=== PATIENT | female | born 1995 | race Caucasian/White ===

== ENCOUNTER 2016-11-16 07:57 | Emergency (ER) | payer OTHER ==
[2016-11-16 08:15] VITALS: O2SAT 96
[2016-11-16] MEDS ORDERED: ONDANSETRON 4 MG/2 ML VIAL IVP ONE (08:42)
[2016-11-16] MEDS ORDERED: NS 1,000 ML IV ONE ×2 (08:42→09:39)
--- NOTE | 2016-11-16 08:46 | EDPHY ---
H & P Stated Complaint: st/fever/cough Source: Patient, Family Exam Limitations: No limitations - Personal History LMP (Females 10-55): Now Current Tetanus/Diphtheria Vaccine: Yes - Medical/Surgical History Hx Asthma: No Hx Chronic Respiratory Disease: No Hx Diabetes: No Hx Cardiac Disease: No Hx Renal Disease: No Hx Cirrhosis: No Hx Alcoholism: No Hx HIV/AIDS: No Hx Splenectomy or Spleen Trauma: No Other PMH: chronic abd pain - Social History Smoking Status: Never smoked HPI/ROS: CHIEF COMPLAINT: Sore throat, body aches, abdominal pain, cough HISTORY OF PRESENT ILLNESS: The patient complains of 6 days history of sore throat, body aches, chills, fevers, abdominal pain, cough, back ache. Symptoms started abruptly on Thursday. They have been moderate to severe. The worsened throughout the week. No alleviating factors with DayQuil. No predictable exacerbating factors. No actual chest pain or shortness of breath. The cough is nonproductive. The throat is very sore but she is able to keep liquids down. She has been nauseated but not actively vomiting. She does have abdominal discomfort but no constipation or diarrhea. No neck pain or stiffness. Some associated headache. No other associated complaints or modifying factors. She did receive her flu immunization this year. REVIEW OF SYSTEMS: Ten systems reviewed and are negative unless otherwise noted in the HPI PERTINENT MEDICAL HISTORY: Hospitalization in September for gastroenteritis EXAMINATION General Appearance: Alert, no distress, flu-like appearance Head: normocephalic, atraumatic Eyes: Pupils equal and round, no conjunctival pallor or injection. EOMs intact ENT, Mouth: Mucous membranes moist. Uvula is midline. There is mild posterior erythema. No edema or asymmetry of the tonsils. Airway is widely patent. Neck: Normal inspection, supple, non-tender. Anterior cervical lymphadenopathy Respiratory: Tachypneic. Mild rhonchi. No wheezing. No crackles. No consolidation or diminishment. No distress. Cardiovascular: Regular rhythm with tachycardic rate. No murmur. Gastrointestinal: Abdomen is soft and nontender. No hepatosplenomegaly. No tympany rigidity. No CVA tenderness. Back: non-tender, no bony abnormalities Neurological: A&O, nonfocal, normal gait. Strength is symmetric. Skin: Warm and dry, no rash. No petechiae or purpura. Extremities: Nontender, no pedal edema Psychiatric: Mood and affect normal DIFFERENTIAL DIAGNOSES: Including but not limited to influenza, viral illness, infectious mononucleosis , sepsis, pneumonia, pharyngitis, strep pharyngitis MDM: 8:40 a.m. Complaints that suggest influenza. The patient's vital signs are tachycardic and tachypneic, thus I will order blood cultures and lactic acid. Suspect this is due to influenza however. She is in no acute distress but she is very uncomfortable in her scenario. Provide symptomatic medications while laboratory studies were drawn. 9:30 a.m. Positive strep test with leukocytosis. Lactic acid is negative. I have informed her the rapid strep test. She is feeling significantly better at this time. Heart rate is now down into the upper 80s and low 90s. She is afebrile. She is in no acute distress in tells me that she is feeling much better. Will continue IV fluid resuscitation and start treatment for her strep pharyngitis here in the emergency department. I do feel she will be stable for discharge home, and she actually wants to be discharged home. Continue to monitor and provide IV fluid resuscitation. 10:50 a.m. Patient has received 2 L IV fluid. She has also received her clindamycin IV. She is feeling significantly better since time of arrival I do feel she is stable for discharge home. Discharged home with clindamycin, Ed[place] and instructions to increase her fluid intake today. She is to return here for worsening symptoms, difficulty breathing or any chest pain. She is to return here in 2 days with her primary care physician. She is comfortable with this plan and discharged home stable condition. SUPERVISION: This patient was independently evaluated without direct examination by the attending physician. Case was discussed with attending physician. (Dylan Leon) Constitutional: Initial Vital Signs Temperature (C) 37.2 C 11/16/16 08:12 Heart Rate 123 H 11/16/16 08:12 Respiratory Rate 22 H 11/16/16 08:12 Blood Pressure 128/74 H 11/16/16 08:12 O2 Sat (%) 96 11/16/16 08:12 O2 Delivery Mode Room Air Allergies/Adverse Reactions: No Known Allergies Allergy (Unverified 11/16/16 08:11) Home Medications: Medication Instructions Recorded Bcp 11/16/16 Clindamycin 300 mg PO Q8 #60 cap 11/16/16 Effexor 11/16/16 Hydrocodone/APAP 5/325 [[place] 1 - 2 tab PO Q4H PRN #10 tab 11/16/16 5/325 (*)] Omeprazole 11/16/16 busPIRone 11/16/16 Medical Decision Making - Diagnostics Imaging: Imaging Impressions Chest X-Ray 11/16/16 08:40 Impression: Bronchitis with minimal medial right basilar consolidation, which could be related to early pneumonia or atelectasis. ED Course/Re-evaluation: I did not see this patient while she was in the emergency department. However her care was discussed with the PA while the patient was in the department. I agree with treatment plan and management (Jose Cruz Huff) - Data Points Laboratory Results: Laboratory Results 11/16/16 08:50 11/16/16 08:50 11/16/16 11/16/16 11/16/16 Unknown 09:08 09:08 WBC RBC Hgb Hct MCV MCH MCHC RDW Plt Count MPV Neut % (Auto) Lymph % (Auto) [place] % (Auto) Eos % (Auto) Baso % (Auto) Nucleat RBC Rel Count Absolute Neuts (auto) Absolute Lymphs (auto) Absolute Monos (auto) Absolute Eos (auto) Absolute Basos (auto) Absolute Nucleated RBC Immature Gran % Immature Gran # VBG Lactic Acid Sodium Potassium Chloride Carbon Dioxide Anion Gap BUN Creatinine Estimated GFR Glucose Calcium Total Bilirubin Lipase Beta HCG, Qual Monoscreen Influenza Typ A,B (DFA) NEGATIVE FOR FLU (NEGATIVE) Group A Strep Screen POSITIVE H (NEGATIVE) Group A Strep DNA TNP 11/16/16 11/16/16 11/16/16 08:50 08:50 08:50 WBC 13.64 10^3/uL H 10^3/uL (3.80-9.50) RBC 4.51 10^6/uL 10^6/uL (4.18-5.33) Hgb 11.5 g/dL L g/dL (12.6-16.3) Hct 35.1 % L % (38.0-47.0) MCV 77.8 fL L fL (81.5-99.8) MCH 25.5 pg L pg (27.9-34.1) MCHC 32.8 g/dL g/dL (32.4-36.7) RDW 15.8 % H % (11.5-15.2) Plt Count 337 10^3/uL 10^3/uL (150-400) MPV 8.9 fL fL (8.7-11.7) Neut % (Auto) 73.4 % % (39.3-74.2) Lymph % (Auto) 17.2 % % (15.0-45.0) [place] % (Auto) 7.6 % % (4.5-13.0) Eos % (Auto) 1.3 % % (0.6-7.6) Baso % (Auto) 0.2 % L % (0.3-1.7) Nucleat RBC Rel Count 0.0 % % (0.0-0.2) Absolute Neuts (auto) 10.01 10^3/uL H 10^3/uL (1.70-6.50) Absolute Lymphs (auto) 2.35 10^3/uL 10^3/uL (1.00-3.00) Absolute Monos (auto) 1.03 10^3/uL H 10^3/uL (0.30-0.80) Absolute Eos (auto) 0.18 10^3/uL 10^3/uL (0.03-0.40) Absolute Basos (auto) 0.03 10^3/uL 10^3/uL (0.02-0.10) Absolute Nucleated RBC 0.00 10^3/uL 10^3/uL (0-0.01) Immature Gran % 0.3 % % (0.0-1.1) Immature Gran # 0.04 10^3/uL 10^3/uL (0.00-0.10) VBG Lactic Acid Sodium 136 mEq/L mEq/L (134-144) Potassium 3.8 mEq/L mEq/L (3.5-5.2) Chloride 105 mEq/L mEq/L (97-110) Carbon Dioxide 21 mEq/l L mEq/l (22-31) Anion Gap 10 mEq/L mEq/L (8-16) BUN 6 mg/dL L mg/dL (7-23) Creatinine 0.7 mg/dL mg/dL (0.6-1.0) Estimated GFR > 60 Glucose 97 mg/dL mg/dL (70-100) Calcium 9.3 mg/dL mg/dL (8.5-10.4) Total Bilirubin 0.5 mg/dL mg/dL (0.1-1.4) Lipase 89.0 IU/L IU/L (23-300) Beta HCG, Qual NEGATIVE Monoscreen NEGATIVE (NEGATIVE) Influenza Typ A,B (DFA) Group A Strep Screen Group A Strep DNA 11/16/16 08:50 WBC RBC Hgb Hct MCV MCH MCHC RDW Plt Count MPV Neut % (Auto) Lymph % (Auto) [place] % (Auto) Eos % (Auto) Baso % (Auto) Nucleat RBC Rel Count Absolute Neuts (auto) Absolute Lymphs (auto) Absolute Monos (auto) Absolute Eos (auto) Absolute Basos (auto) Absolute Nucleated RBC Immature Gran % Immature Gran # VBG Lactic Acid 1.3 mmol/L mmol/L (0.7-2.1) Sodium Potassium Chloride Carbon Dioxide Anion Gap BUN Creatinine Estimated GFR Glucose Calcium Total Bilirubin Lipase Beta HCG, Qual Monoscreen Influenza Typ A,B (DFA) Group A Strep Screen Group A Strep DNA Medications Given: Discontinued Medications Hydrocodone Bitart/Acetaminophen ([place] 5/325mg Prepack#6) 1 btl TAKEHOME EDNOW ONE Stop: 11/16/16 11:00 Last Admin: 11/16/16 11:30 Dose: 1 btl Clindamycin (Cleocin 150 Mg Prepack#6) 1 btl TAKEHOME EDNOW ONE PRN Reason: Protocol Stop: 11/16/16 11:00 Last Admin: 11/16/16 11:29 Dose: 1 btl Dexamethasone (Decadron) 8 mg PO EDNOW ONE Stop: 11/16/16 11:00 Last Admin: 11/16/16 11:17 Dose: 8 mg Sodium Chloride (Ns) 1,000 mls @ 0 mls/hr IV ONCE ONE PRN Reason: Wide Open Stop: 11/16/16 08:43 Last Admin: 11/16/16 09:01 Dose: 1,000 mls Clindamycin Phosphate/Dextrose (Cleocin 600 Mg (Premix)) 50 mls @ 100 mls/hr IV EDNOW ONE PRN Reason: Protocol Stop: 11/16/16 10:08 Last Admin: 11/16/16 10:07 Dose: 50 mls Sodium Chloride (Ns) 1,000 mls @ 0 mls/hr IV ONCE ONE PRN Reason: Wide Open Stop: 11/16/16 09:40 Last Admin: 11/16/16 10:07 Dose: 1,000 mls Morphine Sulfate (Morphine) 4 mg IVP EDNOW ONE Stop: 11/16/16 08:43 Last Admin: 11/16/16 09:13 Dose: 4 mg Ondansetron HCl (Zofran) 4 mg IVP EDNOW ONE Stop: 11/16/16 08:43 Last Admin: 11/16/16 09:01 Dose: 4 mg Departure - Departure Disposition: Home, Routine, Self-Care Clinical Impression: Acute streptococcal pharyngitis, Bronchitis Condition: Good Instructions: Clindamycin (By mouth), Hydrocodone/Acetaminophen (By mouth), Strep Throat (ED), Acute Bronchitis (ED) Additional Instructions: Medications as prescribed. Follow up with primary care physician in 2 days. Return here if unable to be seen by primary care, and return sooner for worsening symptoms as discussed. Referrals: NONE *PRIMARY CARE P,. [Unknown] - As per Instructions Geronimo Morris MD [Medical Doctor] - As per Instructions Stand Alone Forms: School Excuse Prescriptions: Clindamycin 300 mg PO Q8 #60 cap Hydrocodone/APAP 5/325 [[place] 5/325 (*)] 1 - 2 tab PO Q4H PRN #10 tab PRN Reason: Pain, Moderate
[2016-11-16 09:09] LABS: % IMMATURE GRANULYOCYTES 0.3 % (0.0-1.1); ABSOLUTE IMMATURE GRANULOCYTES 0.04 10^3/uL (0.00-0.10); ADD DIFF? NO; ADD MORPH? NO; ADD SCAN? NO; ATYPICAL LYMPHOCYTE FLAG 20 (0-99); FRAGMENT RBC FLAG 0 (0-99); HEMATOCRIT 35.1 % (38.0-47.0); HEMOGLOBIN 11.5 g/dL (12.6-16.3); LEFT SHIFT FLG 0 (0-99); LIPEMIA HEMOLYSIS FLAG 80 (0-99); MEAN CELL HEMOGLOBIN 25.5 pg (27.9-34.1); MEAN CELL HEMOGLOBIN CONCENTR. 32.8 g/dL (32.4-36.7); MEAN CELL VOLUME 77.8 fL (81.5-99.8); MEAN PLATELET VOLUME 8.9 fL (8.7-11.7); PLATELET CLUMPS FLAG 10 (0-99); PLATELET COUNT 337 10^3/uL (150-400); RED BLOOD CELL COUNT 4.51 10^6/uL (4.18-5.33); RED CELL DISTRIBUTION WIDTH 15.8 % (11.5-15.2)
[2016-11-16 09:23] LABS: ANION GAP 10 mEq/L (8-16); BILIRUBIN,TOTAL 0.5 mg/dL (0.1-1.4); CALCIUM 9.3 mg/dL (8.5-10.4); CARBON DIOXIDE 21 mEq/l (22-31); CHLORIDE 105 mEq/L (97-110); CREATININE 0.7 mg/dL (0.6-1.0); GLOMERULAR FILTRATION RATE > 60; GLUCOSE 97 mg/dL (70-100); POTASSIUM 3.8 mEq/L (3.5-5.2); SODIUM 136 mEq/L (134-144)
[2016-11-16 09:26] LABS: MONO TEST NEGATIVE (NEGATIVE)
[2016-11-16 09:34] LABS: BHCG-QUALITATIVE NEGATIVE
[2016-11-16] MEDS ORDERED: CLINDAMYCIN 600 MG/DEXTROSE 50 ML IV ONE (09:39)
[2016-11-16 10:55] VITALS: BP 103/48; PULSE 98; RESP 16; TEMP 98.8
[2016-11-16] MEDS ORDERED: CLINDAMYCIN 150MG PREPACK#6 BTL TAKEHOME ONE (10:59)
[2016-11-16] MEDS ORDERED: HYDROCOD/APAP 5/325 PREPACK#6 BTL TAKEHOME ONE (10:59)
[2016-11-16] MEDS ORDERED: DEXAMETHASONE 4 MG TAB PO ONE (10:59)
== END 2016-11-16 12:04 | disposition home or self-care (01) ==
DX: J02.0 Streptococcal pharyngitis (principal); J20.9 Acute bronchitis, unspecified
CPT/HCPCS: 96365; J2405

== ENCOUNTER 2016-12-06 14:19 | Emergency (ER) | payer OTHER ==
[2016-12-06] MEDS ORDERED: LORazepam 2 MG/ML INJ IVP ONE (14:29)
[2016-12-06] MEDS ORDERED: NS 1,000 ML IV ONE (14:29)
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
[2016-12-06 14:59] LABS: % IMMATURE GRANULYOCYTES 0.1 % (0.0-1.1); ABSOLUTE IMMATURE GRANULOCYTES 0.01 10^3/uL (0.00-0.10); ADD DIFF? NO; ADD MORPH? NO; ADD SCAN? NO; ATYPICAL LYMPHOCYTE FLAG 10 (0-99); FRAGMENT RBC FLAG 0 (0-99); HEMOGLOBIN 12.1 g/dL (12.6-16.3); LEFT SHIFT FLG 0 (0-99); LIPEMIA HEMOLYSIS FLAG 80 (0-99); MEAN CELL HEMOGLOBIN CONCENTR. 32.7 g/dL (32.4-36.7); MEAN CELL VOLUME 79.6 fL (81.5-99.8); MEAN PLATELET VOLUME 9.2 fL (8.7-11.7); PLATELET CLUMPS FLAG 0 (0-99); PLATELET COUNT 402 10^3/uL (150-400); RED BLOOD CELL COUNT 4.65 10^6/uL (4.18-5.33); RED CELL DISTRIBUTION WIDTH 17.1 % (11.5-15.2)
[2016-12-06 15:21] LABS: ANION GAP 15 mEq/L (8-16); CARBON DIOXIDE 18 mEq/l (22-31); CHLORIDE 107 mEq/L (97-110); CREATININE 0.8 mg/dL (0.6-1.0); GLOMERULAR FILTRATION RATE > 60; GLUCOSE 77 mg/dL (70-100); SODIUM 140 mEq/L (134-144)
[2016-12-06 15:57] VITALS: BP 114/69; PULSE 91; RESP 18; TEMP 98.4; O2SAT 97
== END 2016-12-06 15:57 | disposition home or self-care (01) ==
LOC: EDUNIT#
DX: F41.1 Generalized anxiety disorder (principal)
CPT/HCPCS: 96374; J2060

== ENCOUNTER 2017-06-20 19:21 | Emergency (ER) | payer OTHER ==
[2017-06-20 19:26] VITALS: TEMP 98.2
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
[2017-06-20 20:03] LABS: % IMMATURE GRANULYOCYTES 0.2 % (0.0-1.1); ABSOLUTE IMMATURE GRANULOCYTES 0.02 10^3/uL (0.00-0.10); ADD DIFF? NO; ADD MORPH? NO; ADD SCAN? NO; ATYPICAL LYMPHOCYTE FLAG 30 (0-99); FRAGMENT RBC FLAG 0 (0-99); HEMATOCRIT 40.3 % (38.0-47.0); HEMOGLOBIN 13.5 g/dL (12.6-16.3); LEFT SHIFT FLG 0 (0-99); LIPEMIA HEMOLYSIS FLAG 80 (0-99); MEAN CELL HEMOGLOBIN 28.1 pg (27.9-34.1); MEAN CELL HEMOGLOBIN CONCENTR. 33.5 g/dL (32.4-36.7); MEAN CELL VOLUME 83.8 fL (81.5-99.8); MEAN PLATELET VOLUME 8.3 fL (8.7-11.7); PLATELET CLUMPS FLAG 0 (0-99); PLATELET COUNT 342 10^3/uL (150-400); RED BLOOD CELL COUNT 4.81 10^6/uL (4.18-5.33); RED CELL DISTRIBUTION WIDTH 13.2 % (11.5-15.2)
[2017-06-20 20:12] LABS: ANION GAP 14 mEq/L (8-16); CALCIUM 9.4 mg/dL (8.5-10.4); CARBON DIOXIDE 20 mEq/l (22-31); CHLORIDE 105 mEq/L (97-110); CREATININE 0.8 mg/dL (0.6-1.0); ETHANOL SERUM < 10 mg/dL (0-10); GLOMERULAR FILTRATION RATE > 60; GLUCOSE 106 mg/dL (70-100); POTASSIUM 4.1 mEq/L (3.5-5.2); SODIUM 139 mEq/L (134-144)
[2017-06-20] MEDS ORDERED: LORazepam 1 MG TAB PO ONE ×2 (20:40→20:48)
[2017-06-21 06:38] VITALS: BP 121/89; PULSE 98; RESP 18; O2SAT 98
[2017-06-21] MEDS ORDERED: busPIRone 15 MG TAB PO ONE (06:50)
[2017-06-21] MEDS ORDERED: VENLAFAXINE XR 150 MG CAP PO ONE (06:51)
[2017-06-21] MEDS ORDERED: VENLAFAXINE XR 75 MG CAP PO ONE ×3 (07:00)
== END 2017-06-21 07:14 ==
DX: F33.1 Major depressive disorder, recurrent, moderate (principal)
CPT/HCPCS: 80305; G0480